=== PATIENT | male | born 1965 | race Asian ===

== ENCOUNTER → 2016-08-11 | Outpatient (CLI) | payer OTHER ==
[~2016-08-11] MED LIST: AMOX1TAB12 PO; ASPI-621 PO; ATOR40TA78 PO; Enoxaparin Sodium SQ; LISI5TAB7 PO; METO25TA91 PO; NITR12SP2 SL; TICA90TA PO; WARF5TAB PO
== END | disposition home or self-care (01) ==
LOC: CFH 08:42
PROVIDERS: ATTEND Internal Medicine Cardiovascular Disease
DX: Z01.818 Encounter for other preprocedural examination (principal)
CPT/HCPCS: C8929

== ENCOUNTER → 2016-08-17 | Outpatient (CLI) | payer OTHER | END | disposition home or self-care (01) | LOC: CFH 12:10 | PROVIDERS: ATTEND Internal Medicine Cardiovascular Disease | DX: M25.562 Pain in left knee (principal) ==